=== PATIENT | female | born 1990 | race Caucasian/White ===

== ENCOUNTER 2016-05-20 20:20 | Emergency (ER) | payer OTHER ==
[~2016-05-20] VITALS: Ht 162.5 cm; Wt 90.7 kg
[~2016-05-20 20:20] MED LIST: AMOXICILLIN500 M2 PO; ANAPROX DS550 MG PO; AUGMENTIN 875875 MG PO; BIRTHCONTROL; DIFLUCAN150 MG PO; HYDROCODONE BIT1 T11 PO; MACROBID100 M1 PO; MOTRIN800 MG PO; NAPROSYN500 MG PO; NKHM; TESSALON PERLE200 MG PO; TYLENOL W/CODEI1 TA2 PO; VICODIN 5/500 505 MG PO; ZITHROMAX Z PA250 MG PO; ZITHROMAX250 MG PO; ZOFRAN ODT4 MG SL; ZYRTEC10 MG PO
[2016-05-20] MEDS ORDERED: NAPROSYN500 MG PO (21:07)
[2016-05-20] MEDS ORDERED: 'PARAFON FORTE500 M1 PO (21:07)
== END 2016-05-20 20:47 | disposition home or self-care (01) ==
LOC: ED 20:20
DX: S16.1XXA Strain of muscle, fascia and tendon at neck level, initial encounter (principal); S83.92XA Sprain of unspecified site of left knee, initial encounter; S39.012A Strain of muscle, fascia and tendon of lower back, initial encounter; R03.0 Elevated blood-pressure reading, without diagnosis of hypertension; Z88.6 Allergy status to analgesic agent; W01.0XXA Fall on same level from slipping, tripping and stumbling without subsequent striking against object, initial encounter; Y93.89 Activity, other specified; Y92.69 Other specified industrial and construction area as the place of occurrence of the external cause; Y99.0 Civilian activity done for income or pay

== ENCOUNTER 2017-01-10 10:07 | Emergency (ER) | payer OTHER ==
[~2017-01-10] VITALS: Wt 98.9 kg
[~2017-01-10 10:07] MED LIST changes: +'PARAFON FORTE500 M1 PO
[2017-01-10] MEDS ORDERED: Zofran4 MG PO (12:04)
[2017-01-10] MEDS ORDERED: MAXALT MLT10 MG PO (12:04)
== END 2017-01-10 12:28 | disposition home or self-care (01) ==
LOC: ED 10:07
DX: G43.909 Migraine, unspecified, not intractable, without status migrainosus (principal); Z88.5 Allergy status to narcotic agent

== ENCOUNTER 2017-03-31 06:47 | Emergency (ER) | payer OTHER ==
[~2017-03-31] VITALS: Ht 160 cm; Wt 98.9 kg
[~2017-03-31 06:47] MED LIST changes: +MAXALT MLT10 MG PO; +Zofran4 MG PO
[2017-03-31 07:49] LABS: BASO % 0.2 % (0.0-1.0); EOS # 0.2 10*3/uL (0.0-0.4); EOS % 2.2 % (1.0-4.0); HEMATOCRIT 38.1 % (37.0-47.0); LYMPH # 1.8 10*3/uL (1.3-4.4); LYMPH % 16.8 % (27.0-41.0); MEAN CELL VOLUME 83.9 fl (81.0-99.0); MEAN CORPUSCULAR HGB 28.6 pg (27.0-31.0); MEAN CORPUSCULAR HGB CONC 34.1 g/dl (33.0-37.0); MEAN PLATELET VOLUME 9.6 fl (9.6-12.3); MONO # 0.5 10*3/uL (0.1-1.0); NEUT # 8.2 10*3/uL (2.3-7.9); NEUT % 75.4 % (47.0-73.0); PLATELET COUNT AUTOMATED 216 10*3/uL (130-400); RED BLOOD COUNT 4.54 10*6/uL (4.10-5.10); RED CELL DISTRI WIDTH 12.9 % (0-14.5); WHITE BLOOD COUNT 10.8 10*3/uL (4.8-10.8)
[2017-03-31 08:03] LABS: ALBUMIN 3.8 gm/dl (3.1-4.5); ALKALINE PHOSPHATASE 79 U/L (45-117); BUN 8 mg/dl (7-24); CHLORIDE 102 mmol/L (98-107); CREATININE 0.74 mg/dL (0.55-1.02); LIPASE 93 U/L (73-393); POTASSIUM 3.7 mmol/L (3.5-5.1); SGOT/AST 17 IU/L (3-35); SGPT/ALT 47 U/L (12-78); SODIUM 138 mmol/L (136-145); TOTAL PROTEIN 7.7 gm/dL (6.4-8.2)
[2017-03-31 08:09] LABS: BETA-HCG, QUANT < 1.0 mIU/mL (1-3)
[2017-03-31 08:36] LABS: BILIRUBIN NEGATIVE (NEGATIVE); BLOOD NEGATIVE (NEGATIVE); CLARITY SL CLOUDY (CLEAR); COLOR YELLOW (YELLOW); GLUCOSE NEGATIVE (NEGATIVE); KETONE NEGATIVE (NEGATIVE); LEUKO ESTERASE NEGATIVE (NEGATIVE); NITRITE NEGATIVE (NEGATIVE); PH 5.5 (5.0-9.0); SPECIFIC GRAVITY <= 1.005 (1.005-1.030); UROBILINOGEN 0.2 E.U./dl (0.2-1.0)
[2017-03-31 08:53] LABS: BACTERIA 1+; MUCOUS 1+
[2017-03-31] MEDS ORDERED: PROTONIX40 MG PO (09:38)
== END 2017-03-31 09:57 | disposition home or self-care (01) ==
LOC: ED 06:47
PROVIDERS: Emergency Medicine
DX: K29.00 Acute gastritis without bleeding (principal); G43.909 Migraine, unspecified, not intractable, without status migrainosus; R10.13 Epigastric pain; Z88.5 Allergy status to narcotic agent; Z79.899 Other long term (current) drug therapy

== ENCOUNTER 2018-03-07 13:11 | Emergency (ER) | payer OTHER ==
[~2018-03-07] VITALS: Ht 160 cm; Wt 99.8 kg
--- NOTE | ~2018-03-07 | EKG ---
[employer], [place] ELECTROCARDIOGRAM REPORT NAME: MARTINE WATSON UNIT #: [id number] ROOM: DOCTOR: KATHY DRAFT REPORT BIRTHDATE: [birth year] [facility] Test Date: 2018-03-07 Test Time: 13:45:54 Pat Name: MARTINE WATSON Department: Room: Gender: F [employer]: : 1990 Requested By: JESUS RAHMAN Order Number: [id number] Reading MD: Edwin Bolivar MD Measurements Intervals [place] Rate: 81 P: 38 AR: 138 QRS: 53 QRSD: 87 T: 6 QT: 357 QTc: 415 Interpretive Statements Sinus rhythm No previous ECG available for comparison Electronically Signed On 03-07-2018 17:29:21 PST by Edwin Bolivar MD CM:EKGRPT:ELECTROCARDIOGRAM REPORT [id number] JESUS FIGUREOA DRAFT REPORT JESUS RAHMAN DO
[~2018-03-07 13:11] MED LIST changes: +PROTONIX40 MG PO
[2018-03-07 14:41] LABS: BASO % 0.2 % (0.0-1.0); EOS # 0.1 10*3/uL (0.0-0.4); EOS % 0.6 % (1.0-4.0); HEMATOCRIT 42.3 % (37.0-47.0); HEMOGLOBIN 14.2 g/dl (12.0-16.0); LYMPH # 1.4 10*3/uL (1.3-4.4); LYMPH % 11.1 % (27.0-41.0); MEAN CELL VOLUME 86.3 fl (81.0-99.0); MEAN CORPUSCULAR HGB CONC 33.6 g/dl (33.0-37.0); MEAN PLATELET VOLUME 9.4 fl (9.6-12.3); MONO # 0.6 10*3/uL (0.1-1.0); MONO % 4.6 % (3.0-9.0); NEUT # 10.4 10*3/uL (2.3-7.9); NEUT % 83.3 % (47.0-73.0); PLATELET COUNT AUTOMATED 228 10*3/uL (130-400); RED CELL DISTRI WIDTH 12.3 % (0-14.5); WHITE BLOOD COUNT 12.5 10*3/uL (4.8-10.8)
[2018-03-07 14:51] LABS: ACT PARTIAL THROMBO TIME 23.1 SECONDS (20.8-31.5)
[2018-03-07 14:57] LABS: ALBUMIN 3.9 gm/dl (3.1-4.5); ALKALINE PHOSPHATASE 90 U/L (45-117); BUN 10 mg/dl (7-24); CHLORIDE 104 mmol/L (98-107); CREATININE 0.73 mg/dL (0.55-1.02); LIPASE 96 U/L (73-393); POTASSIUM 4.3 mmol/L (3.5-5.1); SGOT/AST 19 IU/L (3-35); SGPT/ALT 62 U/L (12-78); SODIUM 137 mmol/L (136-145); TOTAL PROTEIN 7.7 gm/dL (6.4-8.2)
[2018-03-07 15:39] LABS: BILIRUBIN NEGATIVE (NEGATIVE); BLOOD 3+ (NEGATIVE); CLARITY CLEAR (CLEAR); COLOR YELLOW (YELLOW); GLUCOSE NEGATIVE (NEGATIVE); KETONE NEGATIVE (NEGATIVE); LEUKO ESTERASE NEGATIVE (NEGATIVE); NITRITE NEGATIVE (NEGATIVE); PH 5.5 (5.0-9.0); UROBILINOGEN 0.2 E.U./dl (0.2-1.0)
[2018-03-07 15:58] LABS: BACTERIA TRACE
== END 2018-03-07 18:10 | disposition home or self-care (01) ==
LOC: ED 13:11
PROVIDERS: Nurse Practitioner Family
DX: R55 Syncope and collapse (principal); N94.6 Dysmenorrhea, unspecified; G43.909 Migraine, unspecified, not intractable, without status migrainosus; Z88.8 Allergy status to other drugs, medicaments and biological substances; Z79.899 Other long term (current) drug therapy